=== PATIENT | male | born 1980 | race African-American/Black ===

== ENCOUNTER 2023-10-02 22:56 | Emergency (ER) | payer MEDICAID ==
[~2023-10-02] VITALS: Ht 177.8 cm; Wt 118.0 kg
[2023-10-02 23:14] VITALS: O2SAT 97
[2023-10-03 01:11] VITALS: BP 138/74; PULSE 91; RESP 20; TEMP 98.8
== END 2023-10-03 01:13 | disposition home or self-care (01) ==
LOC: ER 22:56
DX: S09.90XA Unspecified injury of head, initial encounter (principal); W18.30XA Fall on same level, unspecified, initial encounter; Y93.89 Activity, other specified; Y92.89 Other specified places as the place of occurrence of the external cause; Y99.8 Other external cause status
CPT/HCPCS: 99284